=== PATIENT | female | born 1985 | race Caucasian/White ===

== ENCOUNTER → 2021-03-04 | Outpatient (CLI) | payer OTHER ==
[2014-11-08 17:20] VITALS: BP 159/72
[~2021-03-04] MED LIST: HYDR-2761 PO; LISI10TA16 PO; NAPR-514 PO; PHEN37.53 PO
== END ==
LOC: LAB 09:55
PROVIDERS: ATTEND Orthopaedic Surgery
DX: Z01.812 Encounter for preprocedural laboratory examination (principal); Z20.822 Contact with and (suspected) exposure to COVID-19; G56.01 Carpal tunnel syndrome, right upper limb
CPT/HCPCS: U0003; U0005

== ENCOUNTER 2021-03-08 06:13 | Day surgery (SDC) | payer OTHER ==
[~2021-03-08] VITALS: Ht 162.6 cm; Wt 90.0 kg
[~2021-03-08 06:13] MED LIST changes: -HYDR-2761 PO; +HYDROmorphone 2 MG/ML VIAL IVP PRN; +IV RINGERS,LACTATED 1000ML 1,000 ML IV SCH; +MORPHINE SULFATE 2 MG/ML INJ. IVP PRN; +PROCHLORPERAZINE 10 MG/2 ML VIAL. IVP PRN; +fentaNYL PF VIAL 100 MCG/2 ML VIAL IVP PRN
[2021-03-08 06:39] VITALS: BP 123/64
[2021-03-08] MEDS ORDERED: KETOROLAC 30 MG/ML VIAL. ONE (06:51)
[2021-03-08] MEDS ORDERED: DEXAMETHASONE SOD PHOS 4 MG/ML VIAL ONE (06:51)
[2021-03-08] MEDS ORDERED: LIDOCAINE 2% PF 5 ML VIAL. ONE (06:52)
[2021-03-08] MEDS ORDERED: PROPOFOL 10 MG/ML (20ML) VIAL. IV ONE (06:53)
[2021-03-08] MEDS ORDERED: fentaNYL PF VIAL 100 MCG/2 ML VIAL ONE ×2 (06:53→08:02)
[2021-03-08] MEDS ORDERED: MIDAZOLAM HCL/PF 2 MG/2 ML VIAL. ONE (06:53)
[2021-03-08] MEDS ORDERED: BUPIVACAINE MPF 0.25% 30 ML VIAL. ONE (07:10)
[2021-03-08] MEDS ORDERED: HYDR-2761 PO (07:20)
--- NOTE | 2021-03-08 07:22 | DISCH ---
DISCHARGE INSTRUCTIONS Condition on Discharge Condition on Discharge: Stable Activity After Discharge Activity Instructions for Disc: Other, see below (May perform fine motor use such as eating writing and typing no hard grasping or heavy lifting) Lifting Instructions after Dis: No heavy lifting Weight Bearing Status after Di: Non weight bearing Diet after Discharge Diet after Discharge: Regular Wound Incision Care Wound/Incision Care: Ice to area for comfort, Do not change dressing (Keep dressing on unless wet or soiled) Contacting the [facility] after DC Call your doctor for: Concerns you may have Follow-Up Follow up with: Dr. Fraire or Miriam 10 days CHRISTY FRAIRE MD Mar 08, 2021 07:22
[2021-03-08] MEDS: fentaNYL PF VIAL 100 MCG/2 ML VIAL IVP PRN ×2 (08:03→08:11)
[2021-03-08 08:11] VITALS: BP 117/58
[2021-03-08] MEDS ORDERED: HYDROcodone/APAP 5/325MG 1 TAB TABLET PO ONE (08:15)
--- NOTE | 2021-03-08 15:45 | PDOC4 ---
Operative Note Operative Note Date of surgery: 03/08/2021 Preoperative diagnosis: Right carpal tunnel syndrome Postoperative diagnosis: Same with moderate to severe median nerve compression Operative procedure: Right carpal tunnel release Surgeon: Yee Assist: Andrey arreguin Anesthesia: General Estimated blood loss: 2 cc Complications: None Operative indications: Patient states that she has continued numbness in the median nerve distribution with documented EMG findings of carpal tunnel syndrome and we covered risks benefits postoperative course of surgical treatment with the rationale for carpal tunnel release the possibility of nerve or blood vessel damage infection medical or other anesthetic complications continued pain scarring among others all her questions were answered and she wishes to proceed with surgical evaluation and treatment Operative text: Patient was identified procedure verified patient placed in supine position on the operating table. After adequate amounts of general anesthesia were administered the right upper extremity was prepped and draped in standard sterile fashion with an upper arm tourniquet. After timeout was performed patient procedure identified and verified the right upper extremity was exsanguinated by Esmarch bandage and Maricruz block anesthesia was established. After verifying the patient and procedure with an additional timeout, a longitudinal incision was made just distal to the distal palmar crease blunt dissection carried out down to the transverse carpal ligament which was divided longitudinally under direct vision with a scalpel and then with tenotomy scissors verifying complete release of the transverse carpal ligament both proximally and distally both visually and palpably. Median nerve was noted to have moderate to severe compression and no synovitis or compromise of the flexor tendons in the carpal tunnel. Thorough irrigation carried out with normal saline solution and closure accomplished with nylon suture in a vertical mattress fashion. Sterile dressings were then applied fingers were noted be warm pink following deflation of the tourniquet. Patient was returned to recovery room in stable condition having tolerated procedure well. Andrey arreguin was present for the procedure assisted in patient positioning prepping draping retraction closure and dressings CRHISTY GIBBONS MD Mar 08, 2021 15:45
== END 2021-03-08 08:45 | disposition home or self-care (01) ==
LOC: SURG 06:13
PROVIDERS: ATTEND Orthopaedic Surgery
DX: G56.01 Carpal tunnel syndrome, right upper limb (principal); I10 Essential (primary) hypertension; Z90.49 Acquired absence of other specified parts of digestive tract; Z98.890 Other specified postprocedural states; Z79.899 Other long term (current) drug therapy; Z72.89 Other problems related to lifestyle
CPT/HCPCS: 64721; 81025; A4930; A6402; J0690; J1100; J1885; J2250; J2704; J3010; J3490; A4657; A6452